=== PATIENT | female | born 1960 | race Caucasian/White ===

== ENCOUNTER 2018-01-11 12:47 | Inpatient (IN) | payer MEDICARE, MEDICAID ==
[~2018-01-11] VITALS: Ht 174 cm; Wt 120.5 kg
[2018-01-11 13:24] LABS: BASOPHILS % (AUTO) 0.6 % (0-1); EOSINOPHILS # (AUTO) 0.1 X10'3 (0-0.9); EOSINOPHILS % (AUTO) 1.2 % (0-6); HEMATOCRIT 50.2 % (35.0-45.0); HEMOGLOBIN 16.7 g/dl (12.0-16.0); LYMPHOCYTES # (AUTO) 1.4 X10'3 (1.1-4.8); LYMPHOCYTES % (AUTO) 18.7 % (21-51); MEAN CORPUSCULAR HEMOGLOBIN 29.2 PG (27.0-31.0); MEAN CORPUSCULAR HGB CONC 33.2 % (33.0-36.5); MEAN CORPUSCULAR VOLUME 87.9 FL (78-98); MEAN PLATELET VOLUME 7.7 FL (7.4-10.4); MONOCYTES # (AUTO) 0.6 X10'3 (0-0.9); MONOCYTES % (AUTO) 8.1 % (2-12); NEUTROPHILS # (AUTO) 5.3 X10'3 (1.8-7.7); NEUTROPHILS % (AUTO) 71.4 % (42-75); PLATELET COUNT 337 X10'3 (140-440); RED BLOOD COUNT 5.71 X10'6 (4.20-5.60); RED CELL DISTRIBUTION WIDTH 17.2 % (11.5-14.5); WHITE BLOOD COUNT 7.4 X10'3 (4.5-11.0)
[2018-01-11 13:42] LABS: ALANINE AMINOTRANSFERASE 46 U/L (12-78); ALBUMIN 4.2 G/DL (3.4-5.0); ALBUMIN/GLOBULIN RATIO 0.9 (1.1-1.5); ALKALINE PHOSPHATASE 162 IU/L (46-116); ANION GAP 23 (8-16); ASPARTATE AMINO TRANSFERASE 71 U/L (10-37); BILIRUBIN,TOTAL 0.8 MG/DL (0.1-1.0); BLOOD UREA NITROGEN 18 MG/DL (7-18); BUN/CREATININE RATIO 12.2 (6.6-38.0); CHLORIDE 97 MMOL/L (99-107); CREATININE 1.47 MG/DL (0.40-0.90); GLUCOSE 128 MG/DL (70-104); POTASSIUM 3.8 MMOL/L (3.5-5.1); SODIUM 140 MMOL/L (135-145); TOTAL CARBON DIOXIDE 20.1 MMOL/L (24-32); TOTAL PROTEIN 8.8 G/DL (6.4-8.2); eGFR 36 ML/MIN
[2018-01-11 13:49] LABS: ETHANOL < 0.010 GM/DL (0.0-0.010)
[2018-01-11] MEDS ORDERED: normal saline 1000ML IV soln IVB ONE (14:00)
[2018-01-11 14:48] LABS: CLARITY,URINE CLEAR (Clear); COLOR,URINE YELLOW (Yellow); GLUCOSE, URINE NEGATIVE (Neg); KETONES,URINE 40 mg/dl (Neg); LEUKOCYTE ESTERASE ,URINE NEGATIVE (Neg); NITRITES, URINE NEGATIVE (Neg); OCCULT BLOOD,URINE TRACE-LYSED (Neg); PROTEIN,URINE 30 mg/dl (Neg); UROBILINOGEN,URINE 0.2 E.U/dL (0.2-1.0)
[2018-01-11 14:52] LABS: UA COLLECTION TYPE VOIDED
[2018-01-11 14:52] LABS: ACETAMINOPHEN < 2.0 UG/ML (10-30)
[2018-01-11 14:58] LABS: BACTERIA,URINE NONE SEEN /HPF (Neg); MUCUS STRANDS NONE SEEN /LPF (Neg); RBC,URINE 0-2 /HPF (0-2); SQUAMOUS EPITHELIAL CELL,UR NONE SEEN /LPF (FEW); WBC,URINE 0-4 /HPF (0-4)
[2018-01-11 15:00] LABS: URINE AMPHETAMINE SCREEN NEGATIVE (Neg); URINE BARBITUATE SCREEN NEGATIVE (Neg); URINE BENZODIAZEPINES SCREEN NEGATIVE (Neg); URINE CANNABINOID SCREEN POSITIVE (Neg); URINE COCAINE SCREEN NEGATIVE (Neg); URINE METHADONE SCREEN NEGATIVE (Neg); URINE OPIATE SCREEN NEGATIVE (Neg); URINE PHENCYCLIDINE SCREEN NEGATIVE (Neg)
[2018-01-11] MEDS ORDERED: potassium Cl 40MEQ/NS 500ml 500 ML IV PRN ×2 (17:45)
[2018-01-11] MEDS ORDERED: docusate sod 100mg capsule PO PRN (17:45)
[2018-01-11] MEDS ORDERED: LORazepam 1 MG tablet PO PRN (17:45)
[2018-01-11] MEDS ORDERED: magnesium Cl slow-release 64mg tablet PO PRN (17:45)
[2018-01-11] MEDS ORDERED: magnesium 4gm in 100ml NS 100 ML IV PRN (17:45)
[2018-01-11] MEDS ORDERED: dextrose 50%-water 50ml dispensing syringe IV PRN (17:45)
[2018-01-11] MEDS ORDERED: magnesium 1gm/100ml D5W IVPB 100 ML IV PRN (17:45)
[2018-01-11] MEDS ORDERED: potassium Cl 20 mEq SR tablet PO PRN ×2 (17:45)
[2018-01-11] MEDS ORDERED: ondansetron/PF 4mg/2ml inj IV PRN (17:45)
[2018-01-11] MEDS ORDERED: acetaminophen 325mg tablet PO PRN ×2 (17:45)
[2018-01-11 18:08] LABS: HEMOGLOBIN A1C 5.8 % (4.5-6.2)
[2018-01-11 19:01] LABS: ABG BASE EXCESS -5.6 mmol/L (-2.0-3.0); ABG HCO3 18.7 mmol/L (22.0-26.0); ABG OXYGEN SATURATION 92.2 % (95-98); ABG PCO2 (T) 33.4 mmHg (32.0-45.0); ABG PH (T) 7.365 (7.350-7.450); ABG PO2 (T) 67.3 mmHg (83-108); ALLEN'S TEST Positive; FCOHb 0.6 % (0.5-1.5); FMetHb 0.2 % (0.3-1.12); FO2Hb 91.5 % (94-100); RESPIRATORY RATE (OBSERVED) 20 b/min; TOTAL HEMOGLOBIN 15.6 G/dl (12.0-16.0)
[2018-01-11 19:13] VITALS: BP 139/90
[2018-01-11] MEDS: normal saline 1000ml 1,000 ML IV SCH (19:24)
[2018-01-11] MEDS: heparin, porcine 5000 units/ml vial SQ SCH (19:28)
[2018-01-11] MEDS ORDERED: VIT D3 PO (21:11)
[2018-01-11] MEDS ORDERED: LEVO75TA PO (21:11)
[2018-01-11] MEDS ORDERED: ACET-812 PO (21:11)
[2018-01-11] MEDS ORDERED: SERT100T PO (21:11)
[2018-01-11] MEDS ORDERED: GABA-532 PO (21:11)
[2018-01-11] MEDS ORDERED: SIMV20TA5 PO (21:11)
[2018-01-11] MEDS ORDERED: LEVO112T52 PO (21:11)
[2018-01-11] MEDS ORDERED: OMEP40CA37 PO (21:11)
[2018-01-11 22:00] VITALS: BP_SYST 134; BP_SYST 139; BP_SYST 143; BP_DIAS 60; BP_DIAS 86; BP_DIAS 92
[2018-01-12] MEDS ORDERED: DESM0.2T2 PO (02:40)
[2018-01-12] MEDS ORDERED: HYDR10TA14 PO (02:41)
[2018-01-12] MEDS ORDERED: QUET300T72 PO (02:43)
[2018-01-12] MEDS ORDERED: NAPR500T6 PO (02:44)
[2018-01-12] MEDS ORDERED: BACL10TA PO (02:45)
[2018-01-12] MEDS: normal saline 1000ml 1,000 ML IV SCH (03:10)
[2018-01-12 06:00] VITALS: BP 115/80
[2018-01-12 06:58] LABS: BASOPHILS # (AUTO) 0.1 X10'3 (0-0.2); BASOPHILS % (AUTO) 1.1 % (0-1); EOSINOPHILS # (AUTO) 0.2 X10'3 (0-0.9); EOSINOPHILS % (AUTO) 3.4 % (0-6); HEMATOCRIT 42.3 % (35.0-45.0); LYMPHOCYTES # (AUTO) 2.2 X10'3 (1.1-4.8); LYMPHOCYTES % (AUTO) 41.2 % (21-51); MEAN CORPUSCULAR HEMOGLOBIN 29.5 PG (27.0-31.0); MEAN CORPUSCULAR VOLUME 89.2 FL (78-98); MEAN PLATELET VOLUME 8.7 FL (7.4-10.4); MONOCYTES # (AUTO) 0.5 X10'3 (0-0.9); MONOCYTES % (AUTO) 8.8 % (2-12); NEUTROPHILS # (AUTO) 2.5 X10'3 (1.8-7.7); NEUTROPHILS % (AUTO) 45.5 % (42-75); PLATELET COUNT 281 X10'3 (140-440); RED BLOOD COUNT 4.74 X10'6 (4.20-5.60); RED CELL DISTRIBUTION WIDTH 17.6 % (11.5-14.5); WHITE BLOOD COUNT 5.4 X10'3 (4.5-11.0)
[2018-01-12 07:07] LABS: ALANINE AMINOTRANSFERASE 40 U/L (12-78); ALBUMIN 3.4 G/DL (3.4-5.0); ALBUMIN/GLOBULIN RATIO 0.9 (1.1-1.5); ALKALINE PHOSPHATASE 116 IU/L (46-116); ANION GAP 16 (8-16); ASPARTATE AMINO TRANSFERASE 59 U/L (10-37); BILIRUBIN,TOTAL 0.7 MG/DL (0.1-1.0); BLOOD UREA NITROGEN 13 MG/DL (7-18); BUN/CREATININE RATIO 14.3 (6.6-38.0); CALCIUM 9.6 MG/DL (8.5-10.1); CHLORIDE 105 MMOL/L (99-107); CREATININE 0.91 MG/DL (0.40-0.90); GLUCOSE 80 MG/DL (70-104); MAGNESIUM 1.7 MG/DL (1.5-2.4); POTASSIUM 3.5 MMOL/L (3.5-5.1); SODIUM 142 MMOL/L (135-145); TOTAL CARBON DIOXIDE 21.1 MMOL/L (24-32); TOTAL PROTEIN 7.1 G/DL (6.4-8.2); eGFR 63 ML/MIN
[2018-01-12 08:00] VITALS: BP 140/85
[2018-01-12] MEDS ORDERED: K and/or MAG REPLACEMENT MC SCH (08:00)
[2018-01-12] MEDS: heparin, porcine 5000 units/ml vial SQ SCH (08:43)
[2018-01-12 12:04] LABS: CLARITY,URINE CLEAR (Clear); GLUCOSE, URINE NEGATIVE (Neg); KETONES,URINE 40 mg/dl (Neg); LEUKOCYTE ESTERASE ,URINE TRACE (Neg); NITRITES, URINE NEGATIVE (Neg); OCCULT BLOOD,URINE TRACE-INTACT (Neg); PROTEIN,URINE NEGATIVE (Neg); UROBILINOGEN,URINE 0.2 E.U/dL (0.2-1.0)
[2018-01-12 12:08] LABS: COLOR,URINE DARK YELLOW (Yellow); UA COLLECTION TYPE VOIDED
[2018-01-12 12:11] LABS: CHLORIDE,URINE RANDOM 53 MEQ/L; SODIUM,URINE RANDOM < 15 MEQ/L
[2018-01-12 12:28] LABS: BACTERIA,URINE FEW /HPF (Neg); COARSE GRANULAR CAST 0-3 /LPF (NEGATIVE); MUCUS STRANDS FEW /LPF (Neg); RBC,URINE 0-2 /HPF (0-2); SQUAMOUS EPITHELIAL CELL,UR FEW /LPF (FEW); WBC,URINE 0-4 /HPF (0-4)
== END 2018-01-12 17:45 | disposition home or self-care (01) | DRG 682 ==
LOC: ER 12:48 → ED HOLD 17:41 → ORTHO 4S 19:05
PROVIDERS: ADMIT Internal Medicine; ATTEND Family Medicine
DX: N17.9 Acute kidney failure, unspecified (principal); G93.41 Metabolic encephalopathy; E87.2 Acidosis; E86.0 Dehydration; E03.9 Hypothyroidism, unspecified; F41.9 Anxiety disorder, unspecified; F29 Unspecified psychosis not due to a substance or known physiological condition; J44.9 Chronic obstructive pulmonary disease, unspecified; Z98.51 Tubal ligation status; Z88.6 Allergy status to analgesic agent; Z79.899 Other long term (current) drug therapy; Z79.890 Hormone replacement therapy
CPT/HCPCS: 36415; 36600; 71046; 80053; 80305; 80320; 80329; 81001; 82140; 82436; 82800; 82803; 83036; 83605; 83735; 83930; 83970; 84145; 84300; 84443; 85018; 85025; 87040; 87070; 87088; 99285; G0378; J1644; J7030

== ENCOUNTER 2018-01-12 18:10 | Emergency (ER) | payer MEDICARE, MEDICAID ==
[~2018-01-12] VITALS: Ht 172.7 cm; Wt 103.2 kg
[~2018-01-12 18:10] MED LIST: ACET-812 PO; BACL10TA PO; DESM0.2T2 PO; GABA-532 PO; HYDR10TA14 PO; LEVO112T52 PO; LEVO75TA PO; NAPR500T6 PO; OMEP40CA37 PO; QUET300T72 PO; SERT100T PO; SIMV20TA5 PO; VIT D3 PO
[2018-01-12] MEDS: quetiapine 100mg tablet PO SCH (20:00)
[2018-01-12] MEDS ORDERED: acetaminophen 325mg tablet PO PRN (23:00)
[2018-01-12 23:48] LABS: URINE AMPHETAMINE SCREEN NEGATIVE (Neg); URINE BARBITUATE SCREEN NEGATIVE (Neg); URINE BENZODIAZEPINES SCREEN NEGATIVE (Neg); URINE CANNABINOID SCREEN POSITIVE (Neg); URINE COCAINE SCREEN NEGATIVE (Neg); URINE METHADONE SCREEN NEGATIVE (Neg); URINE OPIATE SCREEN NEGATIVE (Neg); URINE PHENCYCLIDINE SCREEN NEGATIVE (Neg)
[2018-01-13] MEDS: levoTHYROXINE 75mcg tablet PO SCH (07:48)
[2018-01-13] MEDS: gabapentin 300mg capsule PO SCH ×3 (07:48→21:35)
[2018-01-13] MEDS: quetiapine 100mg tablet PO SCH ×2 (07:49→21:35)
[2018-01-13] MEDS: pantoprazole 40mg Tablet.DR PO SCH (07:49)
[2018-01-13] MEDS: baclofen 10mg tablet PO SCH ×3 (07:49→21:35)
[2018-01-13] MEDS: vitamin D (cholecalciferol) 1,000 unit tablet PO SCH (07:52)
[2018-01-13] MEDS: naproxen 500mg tablet PO SCH ×2 (07:52→17:30)
[2018-01-13] MEDS: DESMOPRESSIN 0.2 MG PO SCH ×3 (08:00→21:00)
[2018-01-13] MEDS: QUEtiapine 25mg tablet PO SCH ×2 (08:08→21:35)
[2018-01-13] MEDS: sertraline 50mg tablet PO SCH (08:09)
[2018-01-13] MEDS ORDERED: thiamine 100mg tablet PO ONE (14:10)
[2018-01-13] MEDS: atorvastatin 10mg tablet PO SCH (21:35)
[2018-01-14] MEDS: DESMOPRESSIN 0.2 MG PO SCH ×3 (08:00→20:03)
[2018-01-14] MEDS: levoTHYROXINE 75mcg tablet PO SCH (08:24)
[2018-01-14] MEDS: naproxen 500mg tablet PO SCH ×2 (08:24→17:47)
[2018-01-14] MEDS: pantoprazole 40mg Tablet.DR PO SCH (08:24)
[2018-01-14] MEDS: gabapentin 300mg capsule PO SCH ×3 (08:25→20:05)
[2018-01-14] MEDS: sertraline 50mg tablet PO SCH (08:26)
[2018-01-14] MEDS: vitamin D (cholecalciferol) 1,000 unit tablet PO SCH (08:27)
[2018-01-14] MEDS: QUEtiapine 25mg tablet PO SCH ×2 (08:27→20:06)
[2018-01-14] MEDS: quetiapine 100mg tablet PO SCH ×2 (08:27→20:05)
[2018-01-14] MEDS: baclofen 10mg tablet PO SCH ×3 (08:30→20:05)
[2018-01-14] MEDS ORDERED: gadopentetate dimeglumine 7.5 MMOL/15 ML syringe ONE (13:43)
[2018-01-14] MEDS: atorvastatin 10mg tablet PO SCH (20:06)
[2018-01-14] MEDS ORDERED: albuterol 2.5 MG/3 ML nebule NEB ONE (20:35)
[2018-01-15] MEDS: pantoprazole 40mg Tablet.DR PO SCH (09:01)
[2018-01-15] MEDS: vitamin D (cholecalciferol) 1,000 unit tablet PO SCH (09:01)
[2018-01-15] MEDS: levoTHYROXINE 75mcg tablet PO SCH (09:01)
[2018-01-15] MEDS: gabapentin 300mg capsule PO SCH ×3 (09:01→21:46)
[2018-01-15] MEDS: quetiapine 100mg tablet PO SCH ×2 (09:01→21:46)
[2018-01-15] MEDS: sertraline 50mg tablet PO SCH (09:02)
[2018-01-15] MEDS: baclofen 10mg tablet PO SCH ×3 (09:02→21:47)
[2018-01-15] MEDS: naproxen 500mg tablet PO SCH ×2 (09:02→21:47)
[2018-01-15] MEDS: QUEtiapine 25mg tablet PO SCH ×2 (09:02→21:46)
[2018-01-15] MEDS: DESMOPRESSIN 0.2 MG PO SCH ×3 (09:54→21:47)
[2018-01-15] MEDS: atorvastatin 10mg tablet PO SCH (21:46)
[2018-01-16] MEDS: pantoprazole 40mg Tablet.DR PO SCH (08:18)
[2018-01-16] MEDS: baclofen 10mg tablet PO SCH ×3 (08:18→20:13)
[2018-01-16] MEDS: gabapentin 300mg capsule PO SCH ×3 (08:18→20:13)
[2018-01-16] MEDS: DESMOPRESSIN 0.2 MG PO SCH ×3 (08:19→21:41)
[2018-01-16] MEDS: vitamin D (cholecalciferol) 1,000 unit tablet PO SCH (08:19)
[2018-01-16] MEDS: quetiapine 100mg tablet PO SCH ×2 (08:19→20:13)
[2018-01-16] MEDS: sertraline 50mg tablet PO SCH (08:19)
[2018-01-16] MEDS: QUEtiapine 25mg tablet PO SCH ×2 (08:19→20:13)
[2018-01-16] MEDS: levoTHYROXINE 75mcg tablet PO SCH (08:29)
[2018-01-16] MEDS: naproxen 500mg tablet PO SCH ×2 (08:29→23:33)
[2018-01-16] MEDS: hydrocortisone 10mg tablet PO SCH ×3 (10:51→20:13)
[2018-01-16] MEDS ORDERED: Potassium Cl inj 20 MEQ, magnesium sulf injection 2 GM, folic acid inj. 1 MG, thiamine ... IV ONE ×6 (12:49)
[2018-01-16] MEDS ORDERED: thiamine 100mg/ml 2ml inj. IV ONE (12:50)
[2018-01-16] MEDS ORDERED: NORMAL SALINE IV ONE (13:00)
[2018-01-16] MEDS ORDERED: THIAMINE IV ONE (13:00)
[2018-01-16] MEDS: thiamine inj. 100 MG, magnesium sulf injection 2 GM, MVI, adult No.4 with vit. K 10 ML ... IV SCH ×4 (14:38)
[2018-01-16] MEDS: atorvastatin 10mg tablet PO SCH (20:13)
[2018-01-17] MEDS: levoTHYROXINE 75mcg tablet PO SCH (07:35)
[2018-01-17] MEDS: baclofen 10mg tablet PO SCH (07:36)
[2018-01-17] MEDS: gabapentin 300mg capsule PO SCH (07:36)
[2018-01-17] MEDS: naproxen 500mg tablet PO SCH (07:36)
[2018-01-17] MEDS: hydrocortisone 10mg tablet PO SCH (07:36)
[2018-01-17] MEDS: pantoprazole 40mg Tablet.DR PO SCH (07:36)
[2018-01-17] MEDS: QUEtiapine 25mg tablet PO SCH (07:37)
[2018-01-17] MEDS: quetiapine 100mg tablet PO SCH (07:37)
[2018-01-17] MEDS: sertraline 50mg tablet PO SCH (07:37)
[2018-01-17] MEDS: vitamin D (cholecalciferol) 1,000 unit tablet PO SCH (07:37)
[2018-01-17] MEDS: DESMOPRESSIN 0.2 MG PO SCH (07:37)
[2018-01-17] MEDS: thiamine inj. 100 MG, magnesium sulf injection 2 GM, MVI, adult No.4 with vit. K 10 ML ... IV SCH ×4 (07:52)
[2018-01-17 11:52] VITALS: BP 112/79
[2018-01-17] MEDS ORDERED: DOCU100C41 PO (13:25)
[2018-01-17] MEDS ORDERED: QUET-1 PO (13:25)
[2018-01-17] MEDS ORDERED: NAPR-56 PO (13:25)
[2018-01-17] MEDS ORDERED: QUET300T72 PO (13:30)
== END 2018-01-17 11:30 ==
LOC: ER 18:13
DX: F29 Unspecified psychosis not due to a substance or known physiological condition (principal); J44.9 Chronic obstructive pulmonary disease, unspecified; Z98.51 Tubal ligation status; Z88.5 Allergy status to narcotic agent; Z79.899 Other long term (current) drug therapy; Z98.890 Other specified postprocedural states
CPT/HCPCS: 36415; 80305; 94640; 96365; 96366; 96367; 99285; J3411; J3475; J7060

== ENCOUNTER 2018-01-17 09:40 | Inpatient (IN) | payer MEDICARE, MEDICAID ==
[~2018-01-17] VITALS: Ht 170.2 cm; Wt 104.1 kg
[2018-01-17] MEDS ORDERED: mag hydrox/Alum hydrox/simeth 30ml oral suspension PO PRN (11:35)
[2018-01-17] MEDS ORDERED: acetaminophen 325mg tablet PO PRN (11:35)
[2018-01-17] MEDS ORDERED: tuberculin, purif. prot. deriv. 5 units/0.1ml ID ONE (11:35)
[2018-01-17 12:20] VITALS: BP 90/57
[2018-01-17] MEDS ORDERED: QUET-1 PO (13:25)
[2018-01-17] MEDS ORDERED: NAPR-56 PO (13:25)
[2018-01-17] MEDS ORDERED: DOCU100C41 PO (13:25)
[2018-01-17] MEDS ORDERED: QUET300T72 PO (13:30)
[2018-01-17] MEDS ORDERED: non-formulary drug (Acetaminophen (Tylenol Extra Strength) 2 TABLET) PO PRN (13:50)
[2018-01-17] MEDS ORDERED: pneumococcal 23-VAL P-sac vacc 25 mcg/0.5ml vial IMVAC ONE (16:10)
[2018-01-17] MEDS ORDERED: hydrocortisone 10mg tablet PO ONE (17:10)
[2018-01-17] MEDS ORDERED: naproxen 500mg tablet PO SCH (17:30)
[2018-01-17] MEDS: naproxen 500mg tablet PO SCH (17:45)
[2018-01-17 20:00] VITALS: BP 100/68
[2018-01-17] MEDS: docusate sod 100mg capsule PO SCH (20:24)
[2018-01-17] MEDS: quetiapine 100mg tablet PO SCH (20:24)
[2018-01-17] MEDS: DESMOPRESSIN ACETATE 0.2 MG PO SCH (20:24)
[2018-01-17] MEDS: hydrocortisone 10mg tablet PO SCH (20:25)
[2018-01-17] MEDS: baclofen 10mg tablet PO SCH (20:25)
[2018-01-17] MEDS: atorvastatin 20mg tablet PO SCH (20:26)
[2018-01-17] MEDS: gabapentin 300mg capsule PO SCH (20:26)
[2018-01-17] MEDS: acetaminophen 325mg tablet PO PRN (20:27)
[2018-01-17] MEDS ORDERED: hydrocortisone 10mg tablet PO SCH (21:00)
[2018-01-17] MEDS ORDERED: non-formulary drug (Quetiapine Fumarate (Quetiapine Fumarate ER) 1 TAB) PO SCH (21:00)
[2018-01-18] MEDS: docusate sod 100mg capsule PO SCH ×2 (07:56→20:39)
[2018-01-18] MEDS: hydrocortisone 10mg tablet PO SCH ×3 (07:56→20:40)
[2018-01-18] MEDS: gabapentin 300mg capsule PO SCH ×3 (07:56→20:42)
[2018-01-18] MEDS: sertraline 50mg tablet PO SCH (07:56)
[2018-01-18] MEDS: DESMOPRESSIN ACETATE 0.2 MG PO SCH ×2 (07:56→20:39)
[2018-01-18] MEDS: quetiapine 100mg tablet PO SCH ×2 (07:56→20:39)
[2018-01-18] MEDS: naproxen 500mg tablet PO SCH ×2 (07:56→17:45)
[2018-01-18] MEDS: baclofen 10mg tablet PO SCH ×3 (07:57→20:40)
[2018-01-18] MEDS: pantoprazole 40mg Tablet.DR PO SCH (07:57)
[2018-01-18 08:00] VITALS: BP 132/82
[2018-01-18] MEDS ORDERED: levoTHYROXINE 75mcg tablet PO SCH (08:00)
[2018-01-18 15:13] LABS: CLARITY,URINE CLEAR (Clear); COLOR,URINE YELLOW (Yellow); GLUCOSE, URINE NEGATIVE (Neg); KETONES,URINE NEGATIVE (Neg); LEUKOCYTE ESTERASE ,URINE NEGATIVE (Neg); NITRITES, URINE NEGATIVE (Neg); OCCULT BLOOD,URINE NEGATIVE (Neg); PROTEIN,URINE NEGATIVE (Neg); UROBILINOGEN,URINE 0.2 E.U/dL (0.2-1.0)
[2018-01-18 15:16] LABS: UA COLLECTION TYPE FOLEY CATH
[2018-01-18 19:00] VITALS: BP 128/79
[2018-01-18] MEDS: magnesium hydroxide 30ml (MOM) UD suspension PO PRN (20:42)
[2018-01-18] MEDS: atorvastatin 20mg tablet PO SCH (20:42)
[2018-01-19] MEDS ORDERED: levoTHYROXINE 25mcg tablet PO SCH (07:24)
[2018-01-19] MEDS: hydrocortisone 10mg tablet PO SCH ×3 (07:43→20:54)
[2018-01-19] MEDS: levoTHYROXINE 25mcg tablet PO SCH (07:44)
[2018-01-19] MEDS: docusate sod 100mg capsule PO SCH ×2 (07:44→20:52)
[2018-01-19] MEDS: DESMOPRESSIN ACETATE 0.2 MG PO SCH ×2 (07:44→20:55)
[2018-01-19] MEDS: naproxen 500mg tablet PO SCH ×2 (07:45→17:47)
[2018-01-19] MEDS: gabapentin 300mg capsule PO SCH ×3 (07:45→20:52)
[2018-01-19] MEDS: pantoprazole 40mg Tablet.DR PO SCH (07:45)
[2018-01-19] MEDS: baclofen 10mg tablet PO SCH ×3 (07:45→20:52)
[2018-01-19] MEDS: quetiapine 100mg tablet PO SCH ×2 (07:45→20:51)
[2018-01-19] MEDS: sertraline 50mg tablet PO SCH (07:45)
[2018-01-19 08:00] VITALS: BP 142/95
[2018-01-19 08:54] LABS: CHOL/HDL RATIO 4.7 (0.00-4.99); CHOLESTEROL 137 MG/DL (0-200); HDL CHOLESTEROL 29 MG/DL (35-60); LDL CHOLESTEROL 83 MG/DL (50-100); TRIGLYCERIDES 121 MG/DL (20-135)
[2018-01-19] MEDS: pentosan 100mg capsule PO SCH (17:47)
[2018-01-19] MEDS ORDERED: baclofen 10mg tablet PO PRN (18:30)
[2018-01-19 20:00] VITALS: BP 136/89
[2018-01-19] MEDS: tamsulosin 0.4mg capsule PO SCH (20:54)
[2018-01-19] MEDS: atorvastatin 20mg tablet PO SCH (20:54)
[2018-01-19] MEDS: magnesium hydroxide 30ml (MOM) UD suspension PO PRN (20:58)
[2018-01-20] MEDS: gabapentin 300mg capsule PO SCH ×3 (07:21→20:46)
[2018-01-20] MEDS: docusate sod 100mg capsule PO SCH ×2 (07:22→20:00)
[2018-01-20] MEDS: naproxen 500mg tablet PO SCH ×2 (07:22→17:12)
[2018-01-20] MEDS: pantoprazole 40mg Tablet.DR PO SCH (07:22)
[2018-01-20] MEDS: sertraline 50mg tablet PO SCH (07:22)
[2018-01-20] MEDS: hydrocortisone 10mg tablet PO SCH ×3 (07:23→20:56)
[2018-01-20] MEDS: DESMOPRESSIN ACETATE 0.2 MG PO SCH ×2 (07:23→20:45)
[2018-01-20] MEDS: pentosan 100mg capsule PO SCH ×3 (07:24→15:58)
[2018-01-20] MEDS: levoTHYROXINE 25mcg tablet PO SCH (07:24)
[2018-01-20 08:24] VITALS: BP 143/99
[2018-01-20] MEDS: magnesium hydroxide 30ml (MOM) UD suspension PO PRN (15:58)
[2018-01-20 19:55] VITALS: BP 143/100
[2018-01-20] MEDS: atorvastatin 20mg tablet PO SCH (20:51)
[2018-01-20] MEDS: tamsulosin 0.4mg capsule PO SCH (20:51)
[2018-01-20] MEDS: quetiapine 100mg tablet PO SCH (20:52)
[2018-01-20] MEDS: baclofen 10mg tablet PO SCH (20:52)
[2018-01-21] MEDS: hydrocortisone 10mg tablet PO SCH ×3 (07:14→21:10)
[2018-01-21] MEDS: pentosan 100mg capsule PO SCH ×3 (07:15→16:47)
[2018-01-21] MEDS: naproxen 500mg tablet PO SCH ×2 (07:16→16:47)
[2018-01-21] MEDS: pantoprazole 40mg Tablet.DR PO SCH (07:18)
[2018-01-21] MEDS: levoTHYROXINE 25mcg tablet PO SCH (07:20)
[2018-01-21] MEDS: gabapentin 300mg capsule PO SCH ×3 (07:30→21:09)
[2018-01-21] MEDS: DESMOPRESSIN ACETATE 0.2 MG PO SCH ×2 (07:30→21:08)
[2018-01-21] MEDS: sertraline 50mg tablet PO SCH (07:30)
[2018-01-21] MEDS: docusate sod 100mg capsule PO SCH ×2 (08:00→20:00)
[2018-01-21 08:32] VITALS: BP 142/98
[2018-01-21 19:50] VITALS: BP 105/68
[2018-01-21] MEDS: baclofen 10mg tablet PO SCH (21:11)
[2018-01-21] MEDS: tamsulosin 0.4mg capsule PO SCH (21:11)
[2018-01-21] MEDS: quetiapine 100mg tablet PO SCH (21:11)
[2018-01-21] MEDS: atorvastatin 20mg tablet PO SCH (21:13)
[2018-01-22] MEDS: acetaminophen 325mg tablet PO PRN (02:08)
[2018-01-22] MEDS: sertraline 50mg tablet PO SCH (07:28)
[2018-01-22] MEDS: docusate sod 100mg capsule PO SCH ×2 (07:28→20:00)
[2018-01-22] MEDS: naproxen 500mg tablet PO SCH ×2 (07:28→16:52)
[2018-01-22] MEDS: levoTHYROXINE 25mcg tablet PO SCH (07:29)
[2018-01-22] MEDS: hydrocortisone 10mg tablet PO SCH ×3 (07:30→21:03)
[2018-01-22] MEDS: gabapentin 300mg capsule PO SCH ×3 (07:30→21:00)
[2018-01-22] MEDS: pantoprazole 40mg Tablet.DR PO SCH (07:30)
[2018-01-22] MEDS: DESMOPRESSIN ACETATE 0.2 MG PO SCH ×2 (07:31→21:04)
[2018-01-22] MEDS: pentosan 100mg capsule PO SCH ×3 (07:38→16:00)
[2018-01-22 08:00] VITALS: BP 118/72
[2018-01-22] MEDS ORDERED: ELMIRON 100 MG PO SCH (16:00)
[2018-01-22 19:00] VITALS: BP 128/74
[2018-01-22 20:00] VITALS: BP 110/65
[2018-01-22] MEDS: tamsulosin 0.4mg capsule PO SCH (20:59)
[2018-01-22] MEDS: quetiapine 100mg tablet PO SCH (21:02)
[2018-01-22] MEDS: baclofen 10mg tablet PO SCH (21:03)
[2018-01-22] MEDS: atorvastatin 20mg tablet PO SCH (21:03)
[2018-01-22] MEDS: magnesium hydroxide 30ml (MOM) UD suspension PO PRN (21:09)
[2018-01-23] MEDS: pentosan 100mg capsule PO SCH ×3 (07:00→16:43)
[2018-01-23] MEDS: levoTHYROXINE 25mcg tablet PO SCH (07:50)
[2018-01-23 08:00] VITALS: BP 116/71
[2018-01-23] MEDS: hydrocortisone 10mg tablet PO SCH ×3 (08:21→20:19)
[2018-01-23] MEDS: sertraline 50mg tablet PO SCH (08:21)
[2018-01-23] MEDS: docusate sod 100mg capsule PO SCH ×2 (08:21→20:18)
[2018-01-23] MEDS: naproxen 500mg tablet PO SCH ×2 (08:21→16:43)
[2018-01-23] MEDS: pantoprazole 40mg Tablet.DR PO SCH (08:21)
[2018-01-23] MEDS: gabapentin 300mg capsule PO SCH ×3 (08:21→20:20)
[2018-01-23] MEDS: DESMOPRESSIN ACETATE 0.2 MG PO SCH ×2 (08:52→20:31)
[2018-01-23 20:00] VITALS: BP 119/71
[2018-01-23] MEDS: baclofen 10mg tablet PO SCH (20:19)
[2018-01-23] MEDS: tamsulosin 0.4mg capsule PO SCH (20:19)
[2018-01-23] MEDS: quetiapine 100mg tablet PO SCH (20:20)
[2018-01-23] MEDS: atorvastatin 20mg tablet PO SCH (20:20)
[2018-01-23] MEDS: acetaminophen 325mg tablet PO PRN (20:21)
[2018-01-23] MEDS: hydrOXYzine 25 MG tablet PO PRN (20:58)
[2018-01-23] MEDS: magnesium hydroxide 30ml (MOM) UD suspension PO PRN (21:00)
[2018-01-24 08:00] VITALS: BP 101/71
[2018-01-24] MEDS: hydrocortisone 10mg tablet PO SCH ×3 (08:01→20:45)
[2018-01-24] MEDS: DESMOPRESSIN ACETATE 0.2 MG PO SCH ×2 (08:01→20:44)
[2018-01-24] MEDS: pentosan 100mg capsule PO SCH ×3 (08:01→17:28)
[2018-01-24] MEDS: pantoprazole 40mg Tablet.DR PO SCH (08:02)
[2018-01-24] MEDS: docusate sod 100mg capsule PO SCH ×2 (08:02→20:44)
[2018-01-24] MEDS: levoTHYROXINE 25mcg tablet PO SCH (08:02)
[2018-01-24] MEDS: gabapentin 300mg capsule PO SCH ×2 (08:03→13:04)
[2018-01-24] MEDS: naproxen 500mg tablet PO SCH ×2 (08:03→17:28)
[2018-01-24] MEDS: sertraline 50mg tablet PO SCH (08:03)
[2018-01-24] MEDS: hydrOXYzine 25 MG tablet PO PRN ×2 (14:12→20:49)
[2018-01-24 19:00] VITALS: BP 121/73
[2018-01-24] MEDS: tamsulosin 0.4mg capsule PO SCH (20:44)
[2018-01-24] MEDS: baclofen 10mg tablet PO SCH (20:46)
[2018-01-24] MEDS: atorvastatin 20mg tablet PO SCH (20:46)
[2018-01-24] MEDS: quetiapine 100mg tablet PO SCH (20:46)
[2018-01-24] MEDS: gabapentin 100mg capsule PO SCH (20:48)
[2018-01-24] MEDS: acetaminophen 325mg tablet PO PRN (20:50)
[2018-01-25 07:00] VITALS: BP 151/89
[2018-01-25] MEDS: DESMOPRESSIN ACETATE 0.2 MG PO SCH (07:18)
[2018-01-25] MEDS: levoTHYROXINE 25mcg tablet PO SCH (07:19)
[2018-01-25] MEDS: sertraline 50mg tablet PO SCH (07:19)
[2018-01-25] MEDS: hydrocortisone 10mg tablet PO SCH ×2 (07:19→12:58)
[2018-01-25] MEDS: pantoprazole 40mg Tablet.DR PO SCH (07:19)
[2018-01-25] MEDS: docusate sod 100mg capsule PO SCH (07:20)
[2018-01-25] MEDS: naproxen 500mg tablet PO SCH ×2 (07:20→16:44)
[2018-01-25] MEDS: pentosan 100mg capsule PO SCH ×3 (07:20→16:44)
[2018-01-25] MEDS: gabapentin 100mg capsule PO SCH ×2 (07:20→12:58)
[2018-01-25] MEDS ORDERED: SIMV20TA5 PO (14:27)
[2018-01-25] MEDS ORDERED: NAPR-56 PO (14:29)
[2018-01-25] MEDS ORDERED: ACET325T58 PO (14:33)
[2018-01-25] MEDS ORDERED: GABA-532 PO (14:35)
[2018-01-25] MEDS ORDERED: SERT100T10 PO (14:36)
[2018-01-25] MEDS ORDERED: HYDR5TAB2 PO (14:44)
[2018-01-25] MEDS ORDERED: DESM0.2T20 PO (14:46)
[2018-01-25] MEDS ORDERED: LEVO75TA7 PO (14:49)
[2018-01-25] MEDS ORDERED: QUET100T33 PO (14:53)
[2018-01-25] MEDS ORDERED: PENT100C9 PO (14:53)
[2018-01-25] MEDS ORDERED: HYDR50TA65 PO (14:53)
[2018-01-25] MEDS ORDERED: COL100C PO (14:53)
[2018-01-25] MEDS ORDERED: TAMS0.4C32 PO (14:53)
[2018-01-25] MEDS ORDERED: BAC10T PO (14:53)
== END 2018-01-25 17:45 | disposition home or self-care (01) | DRG 885 ==
LOC: ADULT MH 09:40
PROVIDERS: ADMIT Psychiatry & Neurology Psychiatry; ATTEND Psychiatry & Neurology Psychiatry
PROC: 3E0234Z Introduction of Serum, Toxoid and Vaccine into Muscle, Percutaneous Approach (ICD-10-PCS; principal; 2018-01-18)
DX: F33.2 Major depressive disorder, recurrent severe without psychotic features (principal); E23.0 Hypopituitarism; E23.2 Diabetes insipidus; F10.221 Alcohol dependence with intoxication delirium; E78.00 Pure hypercholesterolemia, unspecified; E03.9 Hypothyroidism, unspecified; E78.5 Hyperlipidemia, unspecified; F12.10 Cannabis abuse, uncomplicated; J44.9 Chronic obstructive pulmonary disease, unspecified; K21.9 Gastro-esophageal reflux disease without esophagitis; N30.10 Interstitial cystitis (chronic) without hematuria; R33.9 Retention of urine, unspecified; R47.1 Dysarthria and anarthria; Z96.641 Presence of right artificial hip joint; Z23 Encounter for immunization; Z59.0 Homelessness; Z79.899 Other long term (current) drug therapy; Z98.51 Tubal ligation status; Z81.1 Family history of alcohol abuse and dependence; Z81.8 Family history of other mental and behavioral disorders; Z88.5 Allergy status to narcotic agent
CPT/HCPCS: 36415; 80061; 81003; 87070; 90732; 97116; 97161; 97530; Q0177